=== PATIENT | female | born 1970 | race Caucasian/White ===

== ENCOUNTER 2018-06-30 22:44 | Emergency (ER) | payer MEDICAID ==
[~2018-06-30] VITALS: Ht 175.3 cm; Wt 81.6 kg
[2018-06-30 22:50] VITALS: BP_SYST 106
[2018-07-01] MEDS ORDERED: FOLIC ACID 1 MG, THIAMINE HCL 100 MG, MAGNESIUM SULFATE 1 GM, MVI 10 ML in NACL 0.9% 1,... IV ONE ×5
[2018-07-01 00:08] LABS: CALCIUM 8.3 mg/dL (8.4-11.0); CREATININE 0.72 mg/dL (0.55-1.30); HEMATOCRIT 30.7 % (36-48); HEMOGLOBIN 9.9 g/dL (12.0-16.0); MEAN CORPUSCULAR HEMOGLOBIN 25 pg (27-31); MEAN CORPUSCULAR HGB CONC 32 % (32-36); MEAN CORPUSCULAR VOLUME 78 fL (79.0-98.0); PLATELET COUNT (AUTO) 458 K/uL (130-430); POTASSIUM 3.8 mmol/L (3.5-5.1); RED BLOOD CELL COUNT(AUTO) 3.95 MIL/uL (4.2-6.2); RED CELL DISTRIBUTION WIDTH 19.3 % (9.0-15.0); WHITE BLOOD COUNT (AUTO) 8.8 K/uL (4.8-10.8)
[2018-07-01 00:09] LABS: BASOPHILS % (AUTO) 0.3 % (0.0-2.0); EOSINOPHILS % (AUTO) 0.4 % (0.0-4.0); LYMPHOCYTES % (AUTO) 33.5 % (20.5-51.5); MONOCYTES # (AUTO) 0.5 K/uL (0.0-1.0); MONOCYTES % (AUTO) 6.2 % (1.7-9.3); NEUTROPHILS # (AUTO) 5.3 K/uL (1.8-7.7); NEUTROPHILS % (AUTO) 59.6 % (40.0-70.0)
[2018-07-01 00:24] LABS: ALBUMIN 3.6 g/dL (3.4-4.8); TOTAL BILIRUBIN 0.2 mg/dL (0.0-1.0)
[2018-07-01] MEDS ORDERED: MAGNESIUM SULFATE 1 GM/2 ML VIAL ONE (00:30)
[2018-07-01] MEDS ORDERED: MVI 10 ML VIAL IV ONE (00:30)
[2018-07-01] MEDS ORDERED: THIAMINE HCL 100 MG/ML VIAL ONE (00:30)
[2018-07-01] MEDS ORDERED: FOLIC ACID 5 MG/ML VIAL IV ONE (00:30)
[2018-07-01] MEDS ORDERED: NACL 0.9% 1,000 ML IV ONE (06:15)
[2018-07-01] MEDS ORDERED: ONDANSETRON HCL 4 MG/2 ML VIAL IVP ONE (06:15)
[2018-07-01 07:04] VITALS: BP_SYST 96
== END 2018-07-01 07:04 | disposition home or self-care (01) ==
LOC: SED 22:44
DX: F10.129 Alcohol abuse with intoxication, unspecified (principal); Y90.8 Blood alcohol level of 240 mg/100 ml or more
CPT/HCPCS: 36415; 80053; 85025; 96365; 96366; 96375; 99283; G0482; J2405; J3411; J3475; J3490; J7030

== ENCOUNTER 2018-07-02 23:40 | Emergency (ER) | payer MEDICAID ==
[~2018-07-02] VITALS: Ht 175.3 cm; Wt 81.6 kg
[2018-07-02 23:55] VITALS: BP_SYST 138
--- NOTE | 2018-07-03 00:55 | NUR ---
Patient to ER bed 8 for evaluation. Side rails up.
--- NOTE | 2018-07-03 01:00 | NUR ---
Patient to ER via EMT ambulance for evaluation of ETOH, patient is awake, alert and oriented in no acute distress, vital signs stable, respirations even and unlabored, skin warm and dry to touch. Awaiting evaluation by ER MD, will continue to observe and assess.
--- NOTE | 2018-07-03 01:15 | NUR ---
ER at bedside examining patient.
[2018-07-03 01:55] LABS: BASOPHILS % (AUTO) 0.9 % (0.0-2.0); EOSINOPHILS # (AUTO) 0.1 K/uL (0.0-0.4); LYMPHOCYTES # (AUTO) 1.9 K/uL (1.0-5.5); LYMPHOCYTES % (AUTO) 33.5 % (20.5-51.5); MEAN CORPUSCULAR HEMOGLOBIN 25 pg (27-31); MEAN CORPUSCULAR HGB CONC 32 % (32-36); MEAN CORPUSCULAR VOLUME 77 fL (79.0-98.0); MONOCYTES # (AUTO) 0.5 K/uL (0.0-1.0); MONOCYTES % (AUTO) 8.1 % (1.7-9.3); NEUTROPHILS # (AUTO) 3.1 K/uL (1.8-7.7); NEUTROPHILS % (AUTO) 55.5 % (40.0-70.0); PLATELET COUNT (AUTO) 483 K/uL (130-430); RED BLOOD CELL COUNT(AUTO) 4.01 MIL/uL (4.2-6.2); RED CELL DISTRIBUTION WIDTH 19.6 % (9.0-15.0); WHITE BLOOD COUNT (AUTO) 5.5 K/uL (4.8-10.8)
[2018-07-03 02:00] VITALS: BP_SYST 130
--- NOTE | 2018-07-03 02:00 | NUR ---
Patient resting quietly in no acute distress, awaiting dispo.
[2018-07-03 02:23] LABS: ALBUMIN 3.5 g/dL (3.4-4.8); CALCIUM 8.2 mg/dL (8.4-11.0); CREATININE 0.63 mg/dL (0.55-1.30); TOTAL BILIRUBIN 0.3 mg/dL (0.0-1.0)
--- NOTE | 2018-07-03 03:00 | NUR ---
Patient resting quietly in no acute distress, vital signs stable, respirations even and unlabored, skin warm and dry to touch.
[2018-07-03 03:04] LABS: POTASSIUM 3.7 mmol/L (3.5-5.1)
--- NOTE | 2018-07-03 03:09 | NUR ---
Dr Mcknight at bedside to re-evaluate patient.
--- NOTE | 2018-07-03 04:00 | NUR ---
Pt resting on gurney with rails up. VSS no s/s of acute distress
--- NOTE | 2018-07-03 05:46 | NUR ---
Pt resting on gurney with rails up. VSS no s/s of acute distress
[2018-07-03] MEDS ORDERED: NACL 0.9% 1,000 ML IV ONE (06:15)
--- NOTE | 2018-07-03 06:59 | NUR ---
Patient wandering in ED, bleeding from IV site. Tubing was broken. Patient cleaned. IV heplock left in place. Patients bed saturated from leaking IV bag. Cleaned bed and placed clean sheet on bed. Patient sitting upright in bed.
--- NOTE | 2018-07-03 07:15 | NUR ---
Patient eloped leaving bed 8, patient ambulatory in parking [facility]. IV Heplock was in place, removed in parking lot. Patient encouraged to come back to room 8, patient refusing to return to ED. Just wants a taxi cab called for her. "I have money at [employer] to pay. Just call a cab for me!" Security at front entrance with patient. Called patient a taxi, awaiting call they have arrived. Addendum: 07/03/18 at 0802 by [email or web address] No active bleeding at IV site, gauze in place for bleeding control.
--- NOTE | 2018-07-03 07:35 | NUR ---
Received call taxi had arrived. Patient not found in parking lot, taxi cancelled, 'no show.' Walked parking lot with security, not found.
== END 2018-07-03 07:15 | disposition left against medical advice (07) ==
LOC: SED 23:40
DX: F10.129 Alcohol abuse with intoxication, unspecified (principal); Z53.20 Procedure and treatment not carried out because of patient's decision for unspecified reasons; Y90.8 Blood alcohol level of 240 mg/100 ml or more
CPT/HCPCS: 36415; 80053; 83690; 85025; 99283; G0482